=== PATIENT | female | born 1990 | race African-American/Black ===

== ENCOUNTER 2017-12-30 13:39 | Emergency (ER) | payer OTHER, MEDICAID ==
[2017-12-30] MEDS: HYDROCODONE/APAP (5/325) TAB PO (15:16)
== END 2017-12-30 16:24 | disposition home or self-care (01) ==
LOC: FTE 13:39
DX: M54.2 Cervicalgia (principal); M54.5 Low back pain; F17.210 Nicotine dependence, cigarettes, uncomplicated
CPT/HCPCS: 72040; 72100; 81025; 99283-25